=== PATIENT | female | born 1955 | race Caucasian/White ===

== ENCOUNTER 2018-02-24 16:59 | Emergency (ER) | payer BC ==
[2018-02-24] MEDS ORDERED: [UNRECOGNIZED DRUG - OTHER] (17:13)
[2018-02-24] MEDS ORDERED: ONAB100V4 IJ (17:13)
[2018-02-24] MEDS ORDERED: CYCL10TA29 PO (17:13)
[2018-02-24] MEDS ORDERED: ESCI20TA38 PO (17:13)
[2018-02-24] MEDS ORDERED: TRAZ100T31 PO (17:13)
--- NOTE | 2018-02-24 17:19 | ER Report ---
History and Physical Time Seen By MD: 17:19 Hx. of Stated Complaint: RIGHT KNEE INJURY SKIING TODAY HPI/ROS CHIEF COMPLAINT: Right knee pain HISTORY OF PRESENT ILLNESS: 62-year-old female patient presents to emergency room with complaint of right knee pain. Patient states that she was skiing this afternoon when she caught the edge of her right ski while turning. She stated that caused the right leg to twist and pull back behind her. Patient states that when she initially tried to get up she is not able to bear weight. Patient states that she does have pain, however she does feel that there is a looseness in the knee itself. Patient states that she has not taken any medication for this. She states that the knee throbs but that it is deep into the knee. She denies any numbness or tingling to the right foot or weakness. REVIEW OF SYSTEMS: Respiratory: No cough, no dyspnea. Cardiovascular: No chest pain, no palpitations. Gastrointestinal: No vomiting, no abdominal pain. Musculoskeletal: As noted above Allergies: Coded Allergies: latex (Verified Allergy, Intermediate, 02/24/18) BLISTERING prednisone (Verified Adverse Reaction, Unknown, 02/24/18) "EMOTIONAL" Home Meds Active Scripts Hydrocodone Bit/Acetaminophen (HYDROCODON-ACETAMINOPHEN 5-325) 1 Each Tablet, 1 EACH PO Q4-6H PRN for PAIN, #8 TAB Prov:CINTHIA MCCANN 02/24/18 Reported Medications [Urgratia] No Conflict Check 02/24/18 Onabotulinumtoxina (BOTOX) 100 Unit Vial, IJ, VIAL 02/24/18 Cyclobenzaprine Hcl (CYCLOBENZAPRINE HCL) 10 Mg Tablet, 20 MG PO HS, #9 TAB 02/24/18 Trazodone Hcl (TRAZODONE HCL) 100 Mg Tablet, 200 MG PO QHS, TAB 02/24/18 Escitalopram Oxalate (LEXAPRO) 20 Mg Tablet, 20 MG PO QDAY, TAB 02/24/18 Past Medical/Surgical History Patient has a past medical history of cervical dystonia, urticaria, depression, suicide attempt. Patient has surgical history of appendectomy, D&C, section, left knee surgery, right rotator cuff surgery. Reviewed Nurses Notes: Yes Constitutional Vital Sign - Last 24 Hours 02/24/18 02/24/18 02/24/18 02/24/18 17:06 17:07 17:15 17:30 Temp 97.8 Pulse 84 86 82 Resp 18 B/P (MAP) 140/82 140/82 (101) 125/77 (93) Pulse Ox 94 93 92 O2 Delivery Room Air 02/24/18 02/24/18 02/24/18 02/24/18 17:45 18:00 18:15 18:30 Pulse 79 82 78 B/P (MAP) 122/83 (96) 138/84 (102) Pulse Ox 93 90 91 Physical Exam General Appearance: The patient is alert, has no immediate need for airway protection and no current signs of toxicity. Respiratory: Chest is non tender, lungs are clear to auscultation. Cardiac: regular rate and rhythm Gastrointestinal: Abdomen is soft and non tender, no masses, bowel sounds normal. Musculoskeletal: Neck: Neck is supple and non tender. Extremities have full range of motion and are non tender. Patient has no obvious tenderness to palpation, there is no obvious laxity to the right knee. She does have some mild swelling. Skin: No rashes or lesions. DIFFERENTIAL DIAGNOSIS: After history and physical exam differential diagnosis was considered for contusion, fracture, sprain, ligamentous injury. Medical Decision Making EKG/Imaging Imaging KNEE 4 VIEW RIGHT Indication: Right knee pain. Skiing injury. Comparison: None available Findings: 4 views right knee were obtained. No acute fracture or dislocation. No significant joint effusion. No appreciable degenerative changes. No bony lesion. Soft tissues are unremarkable. IMPRESSION: 1.No acute osseous abnormality of the right knee Report Dictated By: Josue Epps at 02/24/2018 6:17 PM Report E-Signed By: Josue Epps at 02/24/2018 6:19 PM ED Course/Re-evaluation ED Course Patient was admitted to exam room, history and physical were obtained. Differential diagnoses were considered. On examination lungs were clear, heart is regular, abdomen was soft nontender. Patient did have some tenderness to the right knee. She states that the tenderness seems to be deep down is difficult to palpate. An x-ray was done of the right knee which was negative. I discussed the findings with the patient and her significant other. I do have concerns the patient may have torn her anterior cruciate ligament. Patient was placed in a knee immobilizer and was given crutches. She is to follow-up with orthopedics in of the [facility] at her past. She is to limit her activity by pain. She is to use ibuprofen as needed for pain. Patient was given a limited supply of pain medication in case she has worsening pain. Patient verbalized understanding and agreement with plan. Decision to Disposition Date: Feb 24, 2018 Decision to Disposition Time: 18:37 Depart Departure Latest Vital Signs Vital Signs Date Time Temp Pulse Resp B/P (MAP) Pulse Ox O2 Delivery O2 Flow Rate FiO2 02/24/18 18:30 138/84 (102) 02/24/18 18:15 78 91 02/24/18 17:06 97.8 18 Room Air Impression: Primary Impression: Knee sprain Condition: Improved Disposition: HOME OR SELF-CARE New Scripts Hydrocodone Bit/Acetaminophen (HYDROCODON-ACETAMINOPHEN 5-325) 1 Each Tablet 1 EACH PO Q4-6H PRN for PAIN, #8 TAB Prov: CINTHIA MCCANN 02/24/18 Patient Instructions: Knee Sprain (ED) Additional Instructions: Limit activity by pain. Ice the knee 2-3 times a day for 10-15 minutes. Get plenty of rest. Wear the knee immobilizer when you are up moving around. You may take it off to shower and to sleep. You can wear it to sleep if that is more comfortable. Follow up with Orthopedics of the [facility]. Return to the ER if condition worsens. I do have concerns for an ACL injury. You may take Ibuprofen as needed for pain. Problem Qualifiers Primary Impression: Knee sprain Encounter type: initial encounter Involved ligament of knee: unspecified ligament Laterality: right Qualified Codes: S83.91XA - Sprain of unspecified site of right knee, initial encounter CINTHIA MCCANN Feb 24, 2018 17:19
--- NOTE | 2018-02-24 18:23 | RADIOLOGY IMAGING REPORT ---
FACILITY: [facility] PATIENT NAME: Fernanda Chapman : 1955 MR: [id number] V: [id number] EXAM DATE: ORDERING PHYSICIAN: CINTHIA MCCANN TECHNOLOGIST: Location: [facility] [place] Patient: Fernanda Chapman : 1955 Visit/Account:[id number] Date of Sevice: 02/24/2018 KNEE 4 VIEW RIGHT Indication: Right knee pain. Skiing injury. Comparison: None available Findings: 4 views right knee were obtained. No acute fracture or dislocation. No significant joint effusion. No appreciable degenerative changes. No bony lesion. Soft tissues are unremarkable. IMPRESSION: 1.No acute osseous abnormality of the right knee Report Dictated By: Josue Epps at 02/24/2018 6:17 PM Report E-Signed By: Josue Epps at 02/24/2018 6:19 PM WSN:[id number]
[2018-02-24 18:30] VITALS: BP 138/84
[2018-02-24] MEDS ORDERED: HYDR-385 PO (18:33)
== END 2018-02-24 18:46 | disposition home or self-care (01) ==
LOC: ER 17:19
DX: S83.91XA Sprain of unspecified site of right knee, initial encounter (principal); Y93.23 Activity, snow (alpine) (downhill) skiing, snowboarding, sledding, tobogganing and snow tubing
CPT/HCPCS: 73564; 99283